=== PATIENT | female | born 1990 | race Two or more races ===

== ENCOUNTER 2017-01-10 19:20 | Emergency (ER) | payer SELFPAY ==
[~2017-01-10] VITALS: Ht 160 cm; Wt 70.3 kg
[2017-01-10] MEDS ORDERED: AMOXICILLIN500 MG ORAL (19:52)
[2017-01-10] MEDS ORDERED: ACETAMINOPHEN-1 EAC1 ORAL (19:52)
[2017-01-10 19:56] VITALS: BP 129/81
[2017-01-10 19:57] VITALS: BP 129/81
--- NOTE | 2017-01-12 15:01 | Emergency Room Report ---
History of Present Illness General Chief Complaint: Toothache Source: Patient Present Illness HPI 26-year-old female presents ED for evaluation. Patient states she's been having tooth pain for last 1 day. Pain as throbbing, 8/10, nonradiating. Patient states she has a cracked tooth but has not yet seen a dentist. Denies any fevers or chills. Mother aggravating relieving factors. Denies any other associated symptoms Allergies: Coded Allergies: No Known Allergies (Unverified , 01/10/17) Patient History Past Medical History: none Past Surgical History: none Pertinent Family History: none Social History: Denies: alcohol use, drug use, smoking Last Menstrual Period: 2 weeks ago Now: No Immunizations: UTD Reviewed Nursing Documentation: PMH: Agreed, PSxH: Agreed Nursing Documentation-PMH Past Medical History: No History, Except For Review of Systems All Other Systems: negative except mentioned in HPI Physical Exam Vital Signs Date Time Temp Pulse Resp B/P Pulse Ox O2 Delivery O2 Flow Rate FiO2 01/10/17 19:32 97.9 98 14 148/80 100 Room Air Sp02 EP Interpretation: reviewed, normal General Appearance: no apparent distress, alert, GCS 15, non-toxic Head: normocephalic, atraumatic Eyes: bilateral eye PERRL, bilateral eye normal inspection ENT: hearing grossly normal, normal pharynx, no angioedema, normal voice, other - multiple dental caries. cracked tooth in R upper jaw Neck: normal inspection Respiratory: normal inspection Cardiovascular #1: normal inspection Gastrointestinal: normal inspection Rectal: deferred Genitourinary: no CVA tenderness Musculoskeletal: normal inspection Neurologic: alert, oriented x3, responsive, motor strength/tone normal, sensory intact, speech normal Psychiatric: normal inspection Skin: normal inspection Lymphatic: normal inspection Medical Decision Making Diagnostic Impression: Primary Impression: Toothache ER Course 26-year-old female presents ED complaining of tooth pain. Cracked tooth, dental abscess, cavity Patient placed on stretcher. After initial history, physical exam reveals a young female in mild distress. The tooth in question shows a crack but there is no pulp exposed. No surrounding abscess. No induration or swelling. Diagnosis-cracked tooth Stable and discharged to home prescription for Tylenol #3 and amoxicillin. Instructed to see dentist as a walk-in this week. Return to ED if symptoms recur or worse Last Vital Signs Date Time Temp Pulse Resp B/P Pulse Ox O2 Delivery O2 Flow Rate FiO2 01/10/17 19:57 97.9 84 14 129/81 100 Room Air Status: improved Disposition: HOME, SELF-CARE Condition: Stable Scripts Amoxicillin* (AMOXIL*) 500 Mg Capsule 500 MG ORAL THREE TIMES A DAY, #21 CAP Prov: KARUNA CRENSHAW M.D. 01/10/17 Acetaminophen With Codeine (T#3) (TYLENOL #3 TAB*) Y Tab 1 TAB ORAL Q8H Y for For Pain, #20 TAB Prov: KARUNA CRENSHAW M.D. 01/10/17 Referrals: NOT CHOSEN IPA/,REFERRING (PCP) Patient Instructions: Dental Pain Additional Instructions: f/up with dentist this week KARUNA CRENSHAW M.D. Jan 12, 2017 15:01
== END 2017-01-10 20:10 | disposition home or self-care (01) ==
LOC: EMR 20:10
DX: K08.89 Other specified disorders of teeth and supporting structures (principal)
CPT/HCPCS: 99284